=== PATIENT | female | born 1955 | race Native Hawaiian/Other Pacific Islander ===

== ENCOUNTER 2017-10-10 10:46 | Outpatient (CLI) | payer OTHER ==
[2017-10-10] MEDS ORDERED: ACETA PO (11:23)
[2017-10-10] MEDS ORDERED: OXYCODONE PO (11:23)
[2017-10-10] MEDS ORDERED: SERT100T PO (11:24)
[2017-10-10] MEDS ORDERED: MS CONTIN15 MG PO (11:24)
[2017-10-10] MEDS ORDERED: CRESTOR20 MG PO (11:25)
[2017-10-10] MEDS ORDERED: DIAZEPAM5 MG/M2 PO (11:26)
[2017-10-10] MEDS ORDERED: RANI150T78 PO (11:27)
[2017-10-10] MEDS ORDERED: LYRICA50 MG PO (11:28)
[2017-10-10] MEDS ORDERED: OMEPRAZOLE40 MG PO (11:29)
[2017-10-10] MEDS ORDERED: BUDE1AER5 INH (18:09)
[2017-10-10] MEDS ORDERED: ALBU90AE13 INH (18:10)
== END 2017-10-10 10:50 | disposition short-term general hospital (02) ==
LOC: AMB 10:46
DX: R52 Pain, unspecified (principal)
CPT/HCPCS: A0425; A0427

== ENCOUNTER 2017-10-10 10:50 | Inpatient (IN) | payer OTHER ==
[~2017-10-10] VITALS: Ht 157.5 cm; Wt 80.9 kg
[2017-10-10 10:55] VITALS: BP 131/80; TEMP 98.1
[2017-10-10] MEDS ORDERED: OXYCODONE PO (11:23)
[2017-10-10] MEDS ORDERED: ACETA PO (11:23)
[2017-10-10] MEDS ORDERED: MS CONTIN15 MG PO (11:24)
[2017-10-10] MEDS ORDERED: SERT100T PO (11:24)
[2017-10-10] MEDS ORDERED: CRESTOR20 MG PO (11:25)
[2017-10-10] MEDS ORDERED: DIAZEPAM5 MG/M2 PO (11:26)
[2017-10-10] MEDS ORDERED: RANI150T78 PO (11:27)
[2017-10-10] MEDS ORDERED: LYRICA50 MG PO (11:28)
[2017-10-10] MEDS ORDERED: OMEPRAZOLE40 MG PO (11:29)
[2017-10-10 12:19] LABS: PLATELET COUNT 292 K/uL (152-353)
[2017-10-10 12:27] LABS: POTASSIUM 3.2 mmol/L (3.6-5.2)
[2017-10-10 16:23] VITALS: BP 121/63; TEMP 98.5; Ht 157.5 cm; Wt 80.9 kg
[2017-10-10] MEDS ORDERED: BUDE1AER5 INH (18:09)
[2017-10-10] MEDS ORDERED: ALBU90AE13 INH (18:10)
[2017-10-10 20:00] VITALS: BP 140/66; TEMP 98.6
[2017-10-11] VITALS: BP 106/55; TEMP 98.1
[2017-10-11 04:00] VITALS: BP 99/51; TEMP 98.2
[2017-10-11 07:11] LABS: PLATELET COUNT 313 K/uL (152-353)
[2017-10-11 07:23] LABS: POTASSIUM 4.1 mmol/L (3.6-5.2)
[2017-10-11 08:00] VITALS: BP 124/62; TEMP 97.6
[2017-10-11 12:00] VITALS: BP 136/68; TEMP 97.8
[2017-10-11 16:00] VITALS: BP 125/88; TEMP 98
[2017-10-11 20:23] VITALS: BP 134/65; TEMP 97.5
[2017-10-12] VITALS: BP 115/47; TEMP 98.4
[2017-10-12 04:00] VITALS: BP 103/58; TEMP 97.6
--- NOTE | 2017-10-12 04:52 | NUR ---
10/12/17 0445 RECEVING BREATHING TREATMENT PER RESP PT COUGH LOOSE AND RATTLES NAD NOTED.CC
[2017-10-12 08:00] VITALS: BP 116/56; TEMP 98.3
[2017-10-12] MEDS ORDERED: MEDROL4 MG PO (08:12)
[2017-10-12] MEDS ORDERED: BENZONATATE100 MG PO (08:12)
[2017-10-12 08:24] LABS: PLATELET COUNT 355 K/uL (152-353)
[2017-10-12 08:41] LABS: POTASSIUM 4.4 mmol/L (3.6-5.2)
--- NOTE | 2017-10-12 11:33 | NUR ---
1140 PT LEFT WITH IN WC. PT AWAKE AND ALERT. NO PROBLEMS NOTED
== END 2017-10-12 11:35 | disposition home or self-care (01) | DRG 191 ==
LOC: ED 10:50 → MED/SURG 13:37
PROVIDERS: ADMIT Internal Medicine
DX: J44.1 Chronic obstructive pulmonary disease with (acute) exacerbation (principal); E87.1 Hypo-osmolality and hyponatremia; E87.6 Hypokalemia; E78.4 Other hyperlipidemia; K21.9 Gastro-esophageal reflux disease without esophagitis; Z72.0 Tobacco use; R09.02 Hypoxemia; F41.8 Other specified anxiety disorders
CPT/HCPCS: 36415; 36600; 80053; 82805; 83735; 85027; 94640; 94664; 94760; 96365; 96368; 99284; J0456; J0696; J2930

== ENCOUNTER 2017-11-02 08:54 | Outpatient (CLI) | payer OTHER ==
[~2017-11-02 08:54] MED LIST: ACETA PO; ALBU90AE13 INH; BENZONATATE100 MG PO; BUDE1AER5 INH; CRESTOR20 MG PO; DIAZEPAM5 MG/M2 PO; LYRICA50 MG PO; MEDROL4 MG PO; MS CONTIN15 MG PO; OMEPRAZOLE40 MG PO; OXYCODONE PO; RANI150T78 PO; SERT100T PO
== END 2017-11-02 19:33 | disposition home or self-care (01) ==
LOC: RESP 08:54
DX: R06.02 Shortness of breath (principal)

== ENCOUNTER 2021-07-08 10:19 | Outpatient (CLI) | payer OTHER | END 2021-07-08 21:05 | disposition home or self-care (01) | LOC: RAD 10:19 | PROVIDERS: ATTEND Internal Medicine | DX: Z13.820 Encounter for screening for osteoporosis (principal); N95.8 Other specified menopausal and perimenopausal disorders ==